=== PATIENT | female | born 1955 | race Two or more races ===

== ENCOUNTER 2024-06-19 01:16 | Emergency (ER) | payer OTHER ==
[~2024-06-19] VITALS: Ht 157.5 cm; Wt 74.8 kg
[2024-06-19] MEDS ORDERED: ZESTRIL2.5 MG (01:23)
[2024-06-19] MEDS ORDERED: FARXIGA5 MG (01:23)
[2024-06-19] MEDS ORDERED: NORVASC2.5 M1 (01:24)
[2024-06-19] MEDS ORDERED: PLAVIX75 MG (01:24)
[2024-06-19] MEDS ORDERED: ATORVASTATIN CA20 MG (01:24)
[2024-06-19] MEDS ORDERED: ACETAMINOPHEN 500 MG GEL..CAP PO STA (03:38)
[2024-06-19] MEDS ORDERED: KETOROLAC TROMETHAMINE 60 MG VIAL IM STA (03:38)
[2024-06-19] MEDS ORDERED: KETOROLAC TROMETHAMINE 60 MG VIAL IM ONE (03:44)
[2024-06-19] MEDS ORDERED: ACETAMINOPHEN 500 MG GEL..CAP PO ONE (03:44)
== END 2024-06-19 08:00 | disposition home or self-care (01) ==
LOC: ER 01:16
DX: S82.091A Other fracture of right patella, initial encounter for closed fracture (principal); S80.01XA Contusion of right knee, initial encounter; W07.XXXA Fall from chair, initial encounter; Y93.89 Activity, other specified; Y92.89 Other specified places as the place of occurrence of the external cause; Y99.8 Other external cause status; I10 Essential (primary) hypertension; E11.9 Type 2 diabetes mellitus without complications; Z91.013 Allergy to seafood
CPT/HCPCS: 29505; 73501; 73551; 73560; 73590; 73620; 96372; 99283; J1885